=== PATIENT | male | born 1955 | race Caucasian/White ===

== ENCOUNTER → 2019-04-08 | Outpatient (CLI) | payer MEDICAID ==
[2019-04-08 18:53] LABS: ALBUMIN 3.6 GM/DL (3.2-4.5); BILIRUBIN,TOTAL 0.3 MG/DL (0.1-1.0); CALCIUM 8.9 MG/DL (8.5-10.1); CREATININE SERUM 1.67 MG/DL (0.60-1.30); TOTAL PROTEIN 6.7 GM/DL (6.4-8.2)
[2019-04-08 18:54] LABS: HEMATOCRIT 28 % (40-54); MEAN CORPUSCULAR HEMOGLOBIN 25 PG (25-34); MEAN CORPUSCULAR HGB CONC 29 G/DL (32-36); MEAN CORPUSCULAR VOLUME 87 FL (80-99); PLATELET COUNT 129 10^3/uL (130-400); RED CELL DISTRIBUTION WIDTH 17.3 % (10.0-14.5); WHITE BLOOD COUNT 3.1 10^3/uL (4.3-11.0)
[2019-04-08 18:55] LABS: BASOPHILS % (AUTO) 1 % (0-10); EOSINOPHILS # (AUTO) 0.2 10^3/uL (0.0-0.3); EOSINOPHILS % (AUTO) 7 % (0-10); LYMPHOCYTES # (AUTO) 0.8 X 10^3 (1.0-4.0); LYMPHOCYTES % (AUTO) 25 % (12-44); MEAN PLATELET VOLUME 11.4 FL (7.4-10.4); MONOCYTES # (AUTO) 0.2 X 10^3 (0.0-1.0); MONOCYTES % (AUTO) 7 % (0-12); NEUTROPHILS # (AUTO) 1.8 X 10^3 (1.8-7.8); NEUTROPHILS % (AUTO) 60 % (42-75)
[2019-04-09 15:25] LABS: BASOPHILS % (AUTO) 1 % (0-10); EOSINOPHILS # (AUTO) 0.2 10^3/uL (0.0-0.3); EOSINOPHILS % (AUTO) 7 % (0-10); HEMATOCRIT 28 % (40-54); LYMPHOCYTES # (AUTO) 0.8 X 10^3 (1.0-4.0); LYMPHOCYTES % (AUTO) 25 % (12-44); MEAN CORPUSCULAR HEMOGLOBIN 25 PG (25-34); MEAN CORPUSCULAR HGB CONC 29 G/DL (32-36); MEAN CORPUSCULAR VOLUME 87 FL (80-99); MEAN PLATELET VOLUME 11.4 FL (7.4-10.4); MONOCYTES # (AUTO) 0.2 X 10^3 (0.0-1.0); MONOCYTES % (AUTO) 7 % (0-12); NEUTROPHILS # (AUTO) 1.8 X 10^3 (1.8-7.8); NEUTROPHILS % (AUTO) 60 % (42-75); PLATELET COUNT 129 10^3/uL (130-400); RED CELL DISTRIBUTION WIDTH 17.3 % (10.0-14.5); WHITE BLOOD COUNT 3.1 10^3/uL (4.3-11.0)
[2019-04-09 15:37] LABS: ABSOLUTE RETIC # 62 10e9/L (24-90); RETICULOCYTE % 1.91 % (0.50-2.40)
[2019-04-09 22:06] LABS: NEUTROPHILS % (MANUAL) 68 %
[2019-04-09 22:07] LABS: EOSINOPHILS % (MANUAL) 5 %; LYMPHOCYTES % (MANUAL) 18 %; MONOCYTES % (MANUAL) 9 %
[2019-04-09 22:08] LABS: HYPOCHROMASIA MODERATE
== END ==
LOC: LAB FS 16:50
PROVIDERS: ATTEND Internal Medicine
DX: D64.9 Anemia, unspecified (principal); E86.0 Dehydration; D72.819 Decreased white blood cell count, unspecified
CPT/HCPCS: 36415; 80053; 83540; 83550; 85007; 85025; 85027; 85045

== ENCOUNTER → 2019-04-11 | Outpatient (CLI) | payer MEDICAID ==
[2019-04-11 19:09] LABS: BASOPHILS % (AUTO) 1 % (0-10); EOSINOPHILS # (AUTO) 0.2 10^3/uL (0.0-0.3); EOSINOPHILS % (AUTO) 6 % (0-10); HEMATOCRIT 28 % (40-54); LYMPHOCYTES # (AUTO) 0.7 X 10^3 (1.0-4.0); LYMPHOCYTES % (AUTO) 19 % (12-44); MEAN CORPUSCULAR HEMOGLOBIN 25 PG (25-34); MEAN CORPUSCULAR HGB CONC 29 G/DL (32-36); MEAN CORPUSCULAR VOLUME 88 FL (80-99); MEAN PLATELET VOLUME 12.1 FL (7.4-10.4); MONOCYTES # (AUTO) 0.3 X 10^3 (0.0-1.0); MONOCYTES % (AUTO) 7 % (0-12); NEUTROPHILS # (AUTO) 2.5 X 10^3 (1.8-7.8); NEUTROPHILS % (AUTO) 67 % (42-75); PLATELET COUNT 127 10^3/uL (130-400); RED CELL DISTRIBUTION WIDTH 17.7 % (10.0-14.5); WHITE BLOOD COUNT 3.7 10^3/uL (4.3-11.0)
[2019-04-11 19:19] LABS: CREATININE SERUM 1.55 MG/DL (0.60-1.30); POTASSIUM 4.8 MMOL/L (3.6-5.0)
== END ==
LOC: IHC 18:48
PROVIDERS: ATTEND Internal Medicine
DX: I11.0 Hypertensive heart disease with heart failure (principal)
CPT/HCPCS: 36415; 80048; 85025

== ENCOUNTER → 2019-04-18 | Outpatient (CLI) | payer MEDICAID ==
[2019-04-18 14:08] LABS: HEMATOCRIT 29 % (40-54); HEMOGLOBIN 8.7 G/DL (13.3-17.7); MEAN CORPUSCULAR HEMOGLOBIN 25 PG (25-34); MEAN CORPUSCULAR HGB CONC 30 G/DL (32-36); MEAN CORPUSCULAR VOLUME 84 FL (80-99); WHITE BLOOD COUNT 3.7 10^3/uL (4.3-11.0)
[2019-04-18 14:09] LABS: BASOPHILS % (AUTO) 0 % (0-10); EOSINOPHILS % (AUTO) 7 % (0-10); LYMPHOCYTES # (AUTO) 0.8 X 10^3 (1.0-4.0); LYMPHOCYTES % (AUTO) 22 % (12-44); MEAN PLATELET VOLUME 11.5 FL (7.4-10.4); MONOCYTES % (AUTO) 10 % (0-12); NEUTROPHILS # (AUTO) 2.2 X 10^3 (1.8-7.8); NEUTROPHILS % (AUTO) 61 % (42-75); PLATELET COUNT 144 10^3/uL (130-400); RED CELL DISTRIBUTION WIDTH 17.9 % (10.0-14.5)
[2019-04-18 14:10] LABS: EOSINOPHILS # (AUTO) 0.3 10^3/uL (0.0-0.3); MONOCYTES # (AUTO) 0.4 X 10^3 (0.0-1.0)
[2019-04-18 14:23] LABS: CREATININE SERUM 1.82 MG/DL (0.60-1.30)
== END ==
LOC: LAB FS 13:51
PROVIDERS: ATTEND Internal Medicine
DX: I50.9 Heart failure, unspecified (principal); E11.9 Type 2 diabetes mellitus without complications; E86.0 Dehydration; D64.9 Anemia, unspecified
CPT/HCPCS: 36415; 80048; 85025

== ENCOUNTER 2019-07-26 15:31 | Emergency (ER) | payer MEDICAID ==
[~2019-07-26] VITALS: Ht 170.1 cm; Wt 120.0 kg
--- NOTE | 2019-07-26 16:31 | ED Psychosocial ---
General Chief Complaint: Psych/Social Disorder Stated Complaint: SUICIDAL Source: patient, family (family friend/general office associate) Exam Limitations: no limitations (TANYA OREILLY DO) History of Present Illness Date Seen by Provider: Jul 26, 2019 Time Seen by Provider: 15:50 Initial Comments The patient is a 64-year-old male brought in for evaluation of depression and suicidal thoughts. He states that he plans to kill himself by shooting himself with a gun tomorrow. His family friend/general office associate who cares for him 24 7 is present and states that he does not actually have access to firearms. However, she states that he does appear to be extremely depressed and has been picking at himself and stated that he wanted to "watch himself bleed". She states he was recently started on Zyprexa and Cymbalta. She states that some of his triggers a re that his and that his daughter also (in 2012) in these are very sad amounts for him. He denies any attempts to harm himself at this time. He denies homicidal thoughts. Timing/Duration: constant, week (1) Severity: moderate Associated Symptoms: suicidal ideation (TANYA OREILLY DO) Allergies and Home Medications Allergies Coded Allergies: No Known Drug Allergies (Unverified , 07/26/19) Home Medications Olanzapine 5 Mg Tablet, 5 MG PO HS, (Reported) Patient Home Medication List Home Medication List Reviewed: Yes (TANYA OREILLY DO) Review of Systems Constitutional: no symptoms reported EENTM: no symptoms reported Respiratory: no symptoms reported Cardiovascular: no symptoms reported Gastrointestinal: no symptoms reported Genitourinary: no symptoms reported Musculoskeletal: no symptoms reported Skin: no symptoms reported Psychiatric/Neurological: Depressed (TANYA OREILLY DO) All Other Systems Reviewed Negative Unless Noted: Yes (TANYA OREILLY DO) Past Wlhyonz-Ogwjpo-Izlpwm Hx Past Med/Social Hx: Reviewed Nursing Past Med/Soc Hx (TANYA OREILLY DO) Physical Exam Vital Signs - First Documented 07/26/19 15:58 Temp 36.7 Pulse 55 Resp 18 B/P (MAP) 138/73 (94) Pulse Ox 99 O2 Delivery Room Air (BETTY ROSSI MD) Capillary Refill : (TANYA OREILLY DO) Height, Weight, BMI Height: '" Weight: lbs. oz. 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 supervisor II-XII nml as tested, alert, depressed affect Behavior/Eye Contact: normal speech, avoids eye contact Thoughts/Hallucinations: no apparent hallucination Skin: normal color, warm/dry, other (significant skin) (TANYA OREILLY DO) Progress/Results/Core Measures Results/Orders Lab Results Laboratory Tests Test 07/26/19 16:40 07/26/19 17:35 Range/Units White Blood Count 6.3 4.3-11.0 10^3/uL Red Blood Count 3.38 L 4.35-5.85 10^6/uL Hemoglobin 9.3 L 13.3-17.7 G/DL Hematocrit 30 L 40-54 % Mean Corpuscular Volume 88 80-99 FL Mean Corpuscular Hemoglobin 28 25-34 PG Mean Corpuscular Hemoglobin Concent 31 L 32-36 G/DL Red Cell Distribution Width 15.4 H 10.0-14.5 % Platelet Count 203 130-400 10^3/uL Mean Platelet Volume 10.5 H 7.4-10.4 FL Neutrophils (%) (Auto) 67 42-75 % Lymphocytes (%) (Auto) 18 12-44 % Monocytes (%) (Auto) 7 0-12 % Eosinophils (%) (Auto) 7 0-10 % Basophils (%) (Auto) 1 0-10 % Neutrophils # (Auto) 4.2 1.8-7.8 X 10^3 Lymphocytes # (Auto) 1.1 1.0-4.0 X 10^3 Monocytes # (Auto) 0.4 0.0-1.0 X 10^3 Eosinophils # (Auto) 0.4 H 0.0-0.3 10^3/uL Basophils # (Auto) 0.0 0.0-0.1 10^3/uL Sodium Level 137 135-145 MMOL/L Potassium Level 4.2 3.6-5.0 MMOL/L Chloride Level 101 98-107 MMOL/L Carbon Dioxide Level 22 21-32 MMOL/L Anion Gap 14 5-14 MMOL/L Blood Urea Nitrogen 26 H 7-18 MG/DL Creatinine 1.52 H 0.60-1.30 MG/DL Estimat Glomerular Filtration Rate 46 BUN/Creatinine Ratio 17 Glucose Level 111 H 70-105 MG/DL Calcium Level 9.0 8.5-10.1 MG/DL Corrected Calcium 9.4 8.5-10.1 MG/DL Total Bilirubin 0.4 0.1-1.0 MG/DL Aspartate Amino Transf (AST/SGOT) 30 5-34 U/L Alanine Aminotransferase (ALT/SGPT) 17 0-55 U/L Alkaline Phosphatase 151 H 40-136 U/L Total Protein 8.0 6.4-8.2 GM/DL Albumin 3.5 3.2-4.5 GM/DL Salicylates Level < 0.3 L 5.0-20.0 MG/DL Acetaminophen Level < 10 L 10-30 UG/ML Serum Alcohol < 10 <10 MG/DL Urine Color YELLOW Urine Clarity CLEAR Urine pH 5.5 5-9 Urine Specific [place] 1.020 1.016-1.022 Urine Protein NEGATIVE NEGATIVE Urine Glucose (UA) NEGATIVE NEGATIVE Urine Ketones NEGATIVE NEGATIVE Urine Nitrite NEGATIVE NEGATIVE Urine Bilirubin NEGATIVE NEGATIVE Urine Urobilinogen 0.2 < = 1.0 MG/DL Urine Leukocyte Esterase NEGATIVE NEGATIVE Urine RBC (Auto) TRACE H NEGATIVE Urine RBC RARE /HPF Urine WBC RARE /HPF Urine Squamous Epithelial Cells 5-10 /HPF Urine Crystals NONE /LPF Urine Bacteria NEGATIVE /HPF Urine Casts NONE /LPF Urine Mucus NEGATIVE /LPF Urine Culture Indicated NO Urine Opiates Screen NEGATIVE NEGATIVE Urine Oxycodone Screen POSITIVE H NEGATIVE Urine Methadone Screen NEGATIVE NEGATIVE Urine Propoxyphene Screen NEGATIVE NEGATIVE Urine Barbiturates Screen NEGATIVE NEGATIVE Ur Tricyclic Antidepressants Screen NEGATIVE NEGATIVE Urine Phencyclidine Screen NEGATIVE NEGATIVE Urine Amphetamines Screen NEGATIVE NEGATIVE Urine Methamphetamines Screen NEGATIVE NEGATIVE Urine Benzodiazepines Screen NEGATIVE NEGATIVE Urine Cocaine Screen NEGATIVE NEGATIVE Urine Cannabinoids Screen NEGATIVE NEGATIVE (BETTY ROSSI MD) My Orders Orders - BETTY ROSSI MD Olanzapine Orally Dissolve Tab (Zyprexa (07/26/19 23:54) Olanzapine Orally Dissolve Tab (Zyprexa (07/27/19 00:00) (BETTY ROSSI MD) Medications Given in ED Current Medications Medications Dose Ordered Sig/Jono Route Start Time Stop Time Status Last Admin Dose Admin Olanzapine 5 mg ONCE ONCE PO 07/27/19 00:00 07/27/19 00:06 DC 07/27/19 00:09 5 MG (BETTY ROSSI MD) Vital Signs/I&O 07/26/19 21:06 Pulse 65 Resp 16 B/P (MAP) 109/63 (78) Pulse Ox 99 O2 Delivery Room Air (BETTY ROSSI MD) Progress Progress Note : Progress Note @1800 - Pt care transferred to Dr. Rossi at this time. Awaiting behavioral health assessment. (TANYA OREILLY DO) Progress Note #1: Time: 18:18 Progress Note Assumed care of patient at [address] Oreilly. Labs all back as of 1817 and He has no signs of overdose or acute medical condition. He has chronic anemia but his Hgb is stable at 9.3 and improved today from his baseline. He has chronic re nal insufficiency and his Cr is at his baseline as well with Cr of 1.52. His UDS shows Oxycodone but no other drugs show in his drug screen. He is medically stable for mental health screening. Progress Note #2: Time: 19:23 Progress Note Mental health screening by [facility] started. Progress Note #3: Progress Note [facility] called back and stated that they do want to have patient admitted but feel he needs [facility] admit so it may take a while to find placement. They will work on this for him. Progress Note #4: Time: 23:47 Progress Note Pt requesting his night time medicine for helping him rest as he was anxious and picking at scabs on his skin. Will give Olanzapine 5 mg po. Progress Note #5: Progress Note Awaiting screener from [facility] this am. Patient has a pending possible placement in [facility] as well but had no transportation there. Will await screening and work on placement and transportation today. Care passed to Dr. Barakat at shift change. (BETTY ROSSI MD) Progress Note : Time: 08:38 Progress Note Update 08:30: Patient graciously accepted to [facility] for inpatient psychiatric admission by Dr. Wooten. Mental health transporter is here to safely transport the patient. We will proceed with transfer at this time. (LATRICE BARAKAT MD) Transfer of Care Time: 06:00 Care transferred to: Dr. Barakat (BETTY ROSSI MD) Departure Impression Primary Impression: Depression with suicidal ideation Disposition: 65 XFER TO PSYCH HOSP/UNIT Condition: Stable Transfer Transfer Reason: Exceeds level of care (Needs psychiatric services) (BETTY ROSSI MD) Transfer Reason: Exceeds level of care (Needs psychiatric services) Time Spoke to Accepting Phy: 03:00 Transfer Progress Notes Transported to [facility] by the mental health transporter @ 0830. (LATRICE BARAKAT MD) Departure-Patient Inst. Referrals: NO,LOCAL PHYSICIAN (PCP) Primary Care Physician CATHERINE JAMES MD (Family) Primary Care Physician TANYA OREILLY DO Jul 26, 2019 16:31 BETTY ROSSI MD Jul 26, 2019 18:22 LATRICE BARAKAT MD Jul 27, 2019 08:40
[2019-07-26 16:56] LABS: HEMATOCRIT 30 % (40-54); HEMOGLOBIN 9.3 G/DL (13.3-17.7); MEAN CORPUSCULAR HEMOGLOBIN 28 PG (25-34); MEAN CORPUSCULAR HGB CONC 31 G/DL (32-36); MEAN CORPUSCULAR VOLUME 88 FL (80-99); PLATELET COUNT 203 10^3/uL (130-400); RED CELL DISTRIBUTION WIDTH 15.4 % (10.0-14.5); WHITE BLOOD COUNT 6.3 10^3/uL (4.3-11.0)
[2019-07-26 16:57] LABS: BASOPHILS % (AUTO) 1 % (0-10); EOSINOPHILS # (AUTO) 0.4 10^3/uL (0.0-0.3); EOSINOPHILS % (AUTO) 7 % (0-10); LYMPHOCYTES # (AUTO) 1.1 X 10^3 (1.0-4.0); LYMPHOCYTES % (AUTO) 18 % (12-44); MEAN PLATELET VOLUME 10.5 FL (7.4-10.4); MONOCYTES # (AUTO) 0.4 X 10^3 (0.0-1.0); MONOCYTES % (AUTO) 7 % (0-12); NEUTROPHILS # (AUTO) 4.2 X 10^3 (1.8-7.8); NEUTROPHILS % (AUTO) 67 % (42-75)
[2019-07-26 17:18] LABS: CHLORIDE 101 MMOL/L (98-107); POTASSIUM 4.2 MMOL/L (3.6-5.0); SODIUM 137 MMOL/L (135-145)
[2019-07-26 17:19] LABS: ACETAMINOPHEN < 10 UG/ML (10-30); ALANINE AMINOTRANSFERASE 17 U/L (0-55); ALBUMIN 3.5 GM/DL (3.2-4.5); ALKALINE PHOSPHATASE 151 U/L (40-136); BILIRUBIN,TOTAL 0.4 MG/DL (0.1-1.0); BUN/CREATININE RATIO 17; CARBON DIOXIDE 22 MMOL/L (21-32); CREATININE SERUM 1.52 MG/DL (0.60-1.30); GFR ESTIMATED 46; GLUCOSE 111 MG/DL (70-105); SALICYLATE < 0.3 MG/DL (5.0-20.0)
[2019-07-26 18:07] LABS: BILIRUBIN,URINE NEGATIVE (NEGATIVE); CLARITY,URINE CLEAR; COLOR,URINE YELLOW; GLUCOSE, URINE (UA) NEGATIVE (NEGATIVE); KETONES,URINE NEGATIVE (NEGATIVE); LEUKOCYTE ESTERASE ,URINE NEGATIVE (NEGATIVE); NITRITE,URINE NEGATIVE (NEGATIVE); PH,URINE 5.5 (5-9); PROTEIN,URINE NEGATIVE (NEGATIVE)
[2019-07-26 18:08] LABS: AMPHETAMINE SCREEN, URINE NEGATIVE (NEGATIVE); BACTERIA,URINE NEGATIVE /HPF; BARBITURATE SCREEN URINE NEGATIVE (NEGATIVE); BENZODIAZEPINES SCREEN URINE NEGATIVE (NEGATIVE); CANNABINOID SCREEN, URINE NEGATIVE (NEGATIVE); COCAINE SCREEN URINE NEGATIVE (NEGATIVE); METHADONE STAT NEGATIVE (NEGATIVE); METHAMPHETAMINE SCREEN URINE S NEGATIVE (NEGATIVE); OPIATE SCREEN URINE NEGATIVE (NEGATIVE); OXYCODONE STAT POSITIVE (NEGATIVE); PROPOXYPHENE STAT NEGATIVE (NEGATIVE); RBC,URINE RARE /HPF; TRICYCLIC ANTIDEPRESSANTS SCRE NEGATIVE (NEGATIVE); WBC,URINE RARE /HPF
--- NOTE | 2019-07-26 18:33 | NUR ---
Call to After Hours Mental Health screening [facility]". Speaking with Jocelyn, numerous questions asked of patient demographics and form of insurance and county patient is from.
--- NOTE | 2019-07-26 18:43 | NUR ---
Continue with intake info requested from RN for preparing a request for the screening.
--- NOTE | 2019-07-26 18:55 | NUR ---
Jocelyn with [facility] after hours ending call ad going to submit request, Tracking #[id number].
--- NOTE | 2019-07-26 19:18 | NUR ---
Valerie, Licensed Mental Health screener, on phone with this RN.
--- NOTE | 2019-07-26 19:23 | NUR ---
Entered room with Valerie Mental Health Screener live via Zoom to begin screening. Pt has his 24/7 Api Architect present and is approved to be present to assist him.
--- NOTE | 2019-07-26 19:30 | NUR ---
Report to Darlyn CHOUDHARY.
[2019-07-26 21:06] VITALS: BP 109/63
--- NOTE | 2019-07-26 22:34 | NUR ---
FINN CALLED AND STATED [facility] WILL BE SENDING A SCREENER TO DO AN ASSESSMENT ON THE PT TOMORROW MORNING AROUND 0900.
[2019-07-26] MEDS ORDERED: OLANZapine 5 MG ODT (ZyPREXA ZYDIS) ONE (23:54)
[2019-07-27] MEDS ORDERED: OLANZapine 5 MG ODT (ZyPREXA ZYDIS) PO ONE
[2019-07-27] MEDS ORDERED: OLAN5TAB25 PO
--- NOTE | 2019-07-27 01:54 | NUR ---
PT HAS BEEN ACCEPTED TO [facility] AT [facility] IN [place], [place]. THIS PARTS SALVAGER RECEIVED VERBAL CONSENT TO SIGN PAPERWORK FOR ACCEPTING FACILITY FROM [facility]. THIS PARTS SALVAGER CALLED [facility] TO REQUEST TRANSPORT FOR PT TO ACCEPTING FACILITY. TRANSPORT WILL NOT BE AVAILABLE UNTIL LATER IN THE MORNING.
--- NOTE | 2019-07-27 06:50 | NUR ---
FINN CALLED AND STATED TRANSPORT WILL ARRIVE TO [facility] [employer] IN AN HOUR TO TAKE HIM TO [place], [place].
--- NOTE | 2019-07-27 07:00 | NUR ---
Report from Darlyn CHOUDHARY. Call to Mayte CHOUDHARY at [facility] unit, pt was accepted per Dr Wooten and all is good to get transfer going. Explained a [facility] transporter arranged and should be here to merchandise pickup/receiving associate.
--- NOTE | 2019-07-27 07:44 | NUR ---
Call to [facility] to request status update for transport of patient. Shift change had occured and both candy Schmitz and this RN can not find clarity in charting on the estimate time of patient departing.
--- NOTE | 2019-07-27 07:46 | NUR ---
Alfred returned call and states a transporter named "Cliff" is 30 min away from arrival.
--- NOTE | 2019-07-27 08:30 | NUR ---
"Cliff" with the Mental Health Transportation team arrived and was entering patient room with RN to be introduced and get patient ready to depart.
--- NOTE | 2019-07-27 08:40 | NUR ---
Pt assisted via W/C to use restroom. Pt has poor mobility and also requests his pants to be pulled down as unable.
[2019-07-27 08:50] VITALS: BP 112/70
--- NOTE | 2019-07-27 08:50 | NUR ---
Pt departed at this time with RN and Transporter assist using W/C and pushing patient up the van ramp to get into a seat. Pt reports he cannot step up into a vehicle. Pt departing at this time and hazmat cdl a driver has transfer packet of info and transfer form.
== END 2019-07-27 08:50 ==
LOC: EDUNIT# 15:31 → ER FS 15:33
DX: R45.851 Suicidal ideations (principal); F32.9 Major depressive disorder, single episode, unspecified
CPT/HCPCS: 36415; 80053; 80306; 80320; 80329; 81000; 85025; 93005

== ENCOUNTER → 2020-02-12 | Outpatient (CLI) | payer MEDICAID ==
[~2020-02-12] MED LIST: OLAN5TAB25 PO
[2020-02-13 15:17] LABS: POTASSIUM 4.6 MMOL/L (3.6-5.0)
[2020-02-13 15:18] LABS: ALBUMIN 4.1 GM/DL (3.2-4.5); BILIRUBIN,TOTAL 0.9 MG/DL (0.1-1.0); CALCIUM 8.6 MG/DL (8.5-10.1); CREATININE SERUM 1.97 MG/DL (0.60-1.30); TOTAL PROTEIN 7.6 GM/DL (6.4-8.2)
[2020-02-13 15:19] LABS: HEMATOCRIT 30 % (40-54); HEMOGLOBIN 9.2 G/DL (13.3-17.7); MEAN CORPUSCULAR HEMOGLOBIN 27 PG (25-34); MEAN CORPUSCULAR HGB CONC 31 G/DL (32-36); MEAN CORPUSCULAR VOLUME 89 FL (80-99); MEAN PLATELET VOLUME 10.9 FL (7.4-10.4); PLATELET COUNT 122 10^3/uL (130-400); RED CELL DISTRIBUTION WIDTH 14.9 % (10.0-14.5); WHITE BLOOD COUNT 4.7 10^3/uL (4.3-11.0)
[2020-02-13 15:20] LABS: BASOPHILS % (AUTO) 1 % (0-10); EOSINOPHILS # (AUTO) 0.2 10^3/uL (0.0-0.3); EOSINOPHILS % (AUTO) 4 % (0-10); LYMPHOCYTES # (AUTO) 0.4 X 10^3 (1.0-4.0); LYMPHOCYTES % (AUTO) 9 % (12-44); MONOCYTES # (AUTO) 0.3 X 10^3 (0.0-1.0); MONOCYTES % (AUTO) 6 % (0-12); NEUTROPHILS # (AUTO) 3.7 X 10^3 (1.8-7.8); NEUTROPHILS % (AUTO) 80 % (42-75)
== END ==
LOC: LAB FS 13:51
PROVIDERS: ATTEND Internal Medicine
DX: I13.0 Hypertensive heart and chronic kidney disease with heart failure and stage 1 through stage 4 chronic kidney disease, or unspecified chronic kidney disease (principal); D63.1 Anemia in chronic kidney disease; N18.9 Chronic kidney disease, unspecified; I50.9 Heart failure, unspecified
CPT/HCPCS: 36415; 80053; 85025

== ENCOUNTER → 2020-02-24 | Outpatient (CLI) | payer MEDICAID ==
[2020-02-24 17:10] LABS: CALCIUM 8.6 MG/DL (8.5-10.1); CREATININE SERUM 1.91 MG/DL (0.60-1.30); POTASSIUM 4.2 MMOL/L (3.6-5.0)
== END ==
LOC: LAB FS 15:49
PROVIDERS: ATTEND Internal Medicine Cardiovascular Disease
DX: I13.0 Hypertensive heart and chronic kidney disease with heart failure and stage 1 through stage 4 chronic kidney disease, or unspecified chronic kidney disease (principal); D63.1 Anemia in chronic kidney disease; N18.9 Chronic kidney disease, unspecified
CPT/HCPCS: 36415; 80048

== ENCOUNTER → 2020-04-21 | Outpatient (CLI) | payer MEDICAID ==
[2020-04-21 13:13] LABS: CALCIUM 8.7 MG/DL (8.5-10.1); CREATININE SERUM 1.9 MG/DL (0.60-1.30)
== END ==
LOC: LAB FS 12:43
PROVIDERS: ATTEND Internal Medicine
DX: Z01.89 Encounter for other specified special examinations (principal)
CPT/HCPCS: 36415; 80048

== ENCOUNTER → 2020-06-15 | Outpatient (CLI) | payer MEDICAID ==
[2020-06-15 14:57] LABS: CALCIUM 8.7 MG/DL (8.5-10.1); CREATININE SERUM 2.06 MG/DL (0.60-1.30); POTASSIUM 3.5 MMOL/L (3.6-5.0)
== END ==
LOC: LAB FS 14:00
PROVIDERS: ATTEND Internal Medicine Critical Care Medicine
DX: I13.0 Hypertensive heart and chronic kidney disease with heart failure and stage 1 through stage 4 chronic kidney disease, or unspecified chronic kidney disease (principal); I48.11 Longstanding persistent atrial fibrillation
CPT/HCPCS: 36415; 80048

== ENCOUNTER → 2021-04-02 | Outpatient (CLI) | payer MEDICARE, MEDICAID ==
[~2021-04-02] MED LIST changes: -OLAN5TAB25 PO; +OLN5T PO
[2021-04-02 15:53] LABS: CALCIUM 8.8 MG/DL (8.5-10.1); CREATININE SERUM 1.86 MG/DL (0.60-1.30); POTASSIUM 3.2 MMOL/L (3.6-5.0)
== END ==
LOC: IHC 15:03
DX: I13.0 Hypertensive heart and chronic kidney disease with heart failure and stage 1 through stage 4 chronic kidney disease, or unspecified chronic kidney disease (principal)
CPT/HCPCS: 80048